=== PATIENT | female | born 1960 | race Caucasian/White ===

== ENCOUNTER 2017-01-28 08:10 | Day surgery (SDC) | payer OTHER ==
[~2017-01-28] VITALS: Ht 172.7 cm; Wt 63.5 kg
[~2017-01-28 08:10] MED LIST: DICY10CA56 PO; Sodium Chloride LOK Flush 10 mL Syringe IV PRN; fentaNYL-PF 50 mCg/mL 2 mL Inj IVPUSH PRN
[2017-01-28 08:31] VITALS: BP 131/86; PULSE 92; RESP 18; O2SAT 100
[2017-01-28] MEDS ORDERED: 0.9% Sodium Chloride 1,000 ML IV PRN (08:58)
[2017-01-28 09:44] VITALS: BP 120/70; PULSE 74; RESP 16; O2SAT 98
[2017-01-28 09:53] VITALS: BP 114/67; PULSE 81; RESP 16; O2SAT 97
[2017-01-28 10:03] VITALS: BP 131/76; PULSE 76; RESP 16; O2SAT 100
--- NOTE | 2017-01-28 10:11 | ENDO ---
[address] [address] ENDOSCOPY PROCEDURE PATIENT: DEJON VEGA : 1960 MR#: [id number] ADMIT: 01/28/2017 JOB ID: [id number] DATE: 01/28/2017 TYPE OF OPERATION: 1. Esophagogastroduodenoscopy with biopsy. 2. Colonoscopy with biopsy. PREOPERATIVE DIAGNOSIS(ES): Abdominal pain and diarrhea. POSTOPERATIVE DIAGNOSIS(ES): 1. Mild nonerosive gastritis status post biopsy. 2. Small internal hemorrhoids. ANESTHESIA: 1. Fentanyl 200 mcg. 2. Versed 10 mg IV administered. COMPLICATIONS: None. BLOOD LOSS: Minimal. DESCRIPTION OF PROCEDURE: After risks and benefits were explained to the patient, informed consent was obtained. After anesthesia administered, upper endoscope was then inserted into the mouth intubating through the esophagus, stomach, second portion of duodenum. Mucosa carefully examined. After procedure was done, the scope withdrawn and procedure terminated. A colonoscope was then inserted from rectum to the cecum. Mucosa carefully examined to the terminal ileum. Mucosa carefully examined. The prep of the patient was excellent. After the procedure was done, the scope was withdrawn and the procedure terminated. FINDINGS: Upon inspection of the esophagus, the esophagus was normal without masses, ulcers or lesions. Z-line located 40 cm from incisors. Upon entering stomach, the stomach was also normal without masses, ulcers, except for mild nonerosive gastritis. Retroflexion was normal. Duodenal bulb, first and second portion were normal. Biopsies were taken of duodenum, antrum and body of the stomach. On inspection of the anus, no masses, hemorrhoids, ulcers, fissures are seen. Throughout the entire examination, there were no polyps, masses or lesions. Biopsies taken of the terminal ileum and random colon. Retroflexion showed small internal hemorrhoids. IMPRESSION: 1. Small internal hemorrhoids. 2. Mild nonerosive gastritis. RECOMMENDATION: 1. Await pathology results. 2. Followup in GI clinic as needed.
--- NOTE | 2017-01-31 15:09 | PATH ---
SURGICAL PATHOLOGY Attending Physician:Carlos Gambino MD CASE STATUS: Signed Out PATIENT NAME: DEJON VEGA PID: [id number] : 1960 DATE COLLECTED:01/28/2017 16:47 SPECIMEN: 1: Duodenum, Biopsy 2: Stomach, Antrum, Biopsy 3: Gastric, Biopsy 4: Ileum, Biopsy 5: Colon, Biopsy CLINICAL HISTORY: ABDOMINAL PAIN, PERSONAL HISTORY OF POLYPS 1). DUODENUM BIOPSY 2). ANTRUM BIOPSY 3). GASTRIC BODY BIOPSY 4). TERMINAL ILEUM BIOPSY 5). RANDOM COLON BIOPSY FINAL DIAGNOSIS: 1. Duodenum Biopsies: Fragments of normal-appearing duodenal mucosa. Normal delicate mucosal villi present. Negative for significant inflammation, dysplasia, and malignancy. 2. Gastric Antrum Biopsies: Fragments of normal appearing antral mucosa. Negative for significant inflammation. Negative for evidence of Helicobacter on H&E stain. Negative for intestinal metaplasia. Negative for dysplasia and malignancy. 3 Gastric Body Biopsies: Fragments of normal-appearing fundic mucosa. Negative for evidence of Helicobacter on H&E stain. Negative for intestinal metaplasia. Negative for dysplasia and malignancy. 4. Germinal Ileum Biopsy: Fragments of normal-appearing terminal ileum mucosa. Negative for granulomas. Negative for significant inflammation, dysplasia and malignancy. 5. Random Colon Biopsies: Fragments of normal-appearing colon mucosa. Negative for significant architectural distortion. Negative for significant inflammation, dysplasia and malignancy. ICD10: R10.9 GROSS DESCRIPTION: The specimen is received in five formalin filled containers labeled with the patient's name. 1). The specimen is labeled "duodenum" and consists of multiple tiny portions of tissue which aggregate to 0.3 x 0.3 x 0.2 CM. The specimen is entirely submitted in cassette 1A. 2). The specimen is labeled "antrum" and consists of 2 portions of tissue which aggregate to 0.4 x 0.3 x 0.2 CM. The specimen is entirely submitted in cassette 2A. 3). The specimen is labeled "gastric body" and consists of 2 portions of tissue which aggregate to 0.3 x 0.3 x 0.2 CM. The specimen is entirely submitted in cassette 3A. 4). The specimen is labeled "TI" and consists of 2 portions of tissue which aggregate to 0.2 x 0.2 x 0.2 CM. The specimen is entirely submitted in cassette 4A. 5). The specimen is labeled "random colon" and consists of multiple portions of tissue which aggregate to 0.5 x 0.5 x 0.2 CM. The specimen is entirely submitted in cassette 5A. 01/28/2017AR ICD-9 CODES: CPT CODES: 1: 28146 2: 73421 3: 81641 4: 55387 5: 44996 Electronically Signed Out Klever Sapp MD [facility] [address], [place] [address] Technical component performed at [facility], [address], [place], [address]
== END 2017-01-28 23:59 | disposition home or self-care (01) ==
LOC: END 08:10
PROVIDERS: ATTEND Internal Medicine Gastroenterology
DX: K64.8 Other hemorrhoids (principal); K29.70 Gastritis, unspecified, without bleeding; R19.7 Diarrhea, unspecified; R10.12 Left upper quadrant pain; G47.33 Obstructive sleep apnea (adult) (pediatric); I10 Essential (primary) hypertension; Z80.0 Family history of malignant neoplasm of digestive organs
CPT/HCPCS: 43239; 45378; 99153; G0500; J2250; J3010; J7030